=== PATIENT | male | born 1980 | race Hispanic/Latino ===

== ENCOUNTER 2020-06-09 02:35 | Emergency (ER) | payer BC ==
[~2020-06-09] VITALS: Ht 165.1 cm; Wt 88.5 kg
[2020-06-09 02:42] VITALS: BP 144/103
--- NOTE | 2020-06-09 02:47 | PCM.EKG ---
[facility] Test Date: 2020-06-09 Test Time: 02:41:20 Pat Name: ALVARO GIRALDO Department: Patient ID: [facility]-[id number] Room: Gender: M Inside Channel Account Manager: COLETTE : 1980 Requested By: AZRA MIDDLETON Order Number: [id number] Reading MD: Azra Middleton Measurements Intervals [place] Rate: 82 P: 38 AR: 161 QRS: 79 QRSD: 98 T: 37 QT: 378 QTc: 442 Interpretive Statements Sinus rhythm No previous ECG available for comparison Electronically Signed On 06-09-2020 3:08:14 OPHTHALMIC PATHOLOGIST by Azra Middleton Please click the below link to view image of tracing.
--- NOTE | 2020-06-09 02:52 | NUR ---
MARCO ANTONIO CALLED KRISHNA FOR XR CHEST
[2020-06-09 02:54] LABS: BASOPHIL % 0.5 % (0.0-0.2); EOSINOPHIL # 0.2 10^3/uL (0.0-0.2); EOSINOPHIL % 3.2 % (0.0-5.0); LYMPHOCYTES # 3.76 10^3/uL1 (1.0-4.8); LYMPHOCYTES % 50.5 % (24.0-44.0); MONOCYTES # 0.4 10^3/uL (0.3-0.8); MONOCYTES % 5.5 % (5.0-12.0); NEUTROPHIL # 2.8 10^3/uL (1.8-7.7); NEUTROPHILS % 38.2 % (41.0-85.0); PLATELET COUNT 206 10^3/uL (150-400); RED CELL DISTRIBUTION WIDTH 12.5 % (11.5-14.5)
[2020-06-09] MEDS ORDERED: ASPIRIN PO PRN (03:00)
--- NOTE | 2020-06-09 03:05 | ER.PDOC ---
General Chief Complaint: Chest Pain-Cardiac Nature Stated Complaint: CHEST AND ARM PAIN Time seen by MD: 02:48 Source: patient Exam Limitations: no limitations History of Present Illness Initial Comments Patient reports that he woke up this morning feeling sweaty and he had a sensation in his chest that he describes as a strong pulsation with his heart beat. He denies that it is a pain or pressure. He just describes it as a strong pulsation. He also had a funny feeling down his left arm. He denies heart racing or palpitations. No shortness of breath, nausea or lightheadedness. The sweating and arm sensation have resolved and the "pulsations" are not as strong. He can not rate the pulsations. He reports that he has had these sensations in the past usually when he has not had much sleep or if he is stressed. His mother yesteday. He has no medical history. No alcohol last night. No other complaints Allergies: Coded Allergies: No Known Allergies (Unverified , 06/09/20) Past Medical History Medical History: no pertinent history Social History Alcohol Use: none Drug Use: none Reviewed Nursing Reviewed: Vital Signs, Abn. Noted, Nursing Assessment Constitutional: see HPI, diaphoresis EENTM: no symptoms reported Respiratory: no symptoms reported Cardiovascular: see HPI Gastrointestinal: no symptoms reported Musculoskeletal: no symptoms reported Skin: no symptoms reported Psychiatric/Neurological: no symptoms reported All Other Systems: Reviewed and Negative Physical Exam General Appearance: No Apparent Distress, WD/WN HEENT: PERRL/EOMI, Normal ENT Inspection Neck: Non-Tender, Supple Respiratory: chest non-tender, lungs clear, normal breath sounds, no respiratory distress Cardiovascular: Normal Peripheral Pulses, Regular Rate, Rhythm, No Edema Gastrointestinal: Normal Bowel Sounds, Non Tender, Soft Extremities: Normal Range of Motion, Normal Inspection Neurologic/Psychiatric: No Motor/Sensory Deficits, Alert Skin: Normal Color, Warm/Dry Results/Orders Results/Orders Orders - AZRA MIDDLETON MD Cbc With Auto Diff (06/09/20 02:44) Comprehensive Metabolic Panel (06/09/20 02:44) Creatine Kinase (06/09/20 02:44) Creatine Kinase Mb (06/09/20 02:44) Troponin I (06/09/20 02:44) Probnp B-Type Building Insulation Installer (06/09/20 02:44) PT (06/09/20 02:44) Partial Thromboplastin Time. (06/09/20 02:44) Xr Chest 1v (06/09/20 02:44) Ekg-Routine (06/09/20 02:44) Aspirin (Aspirin) (06/09/20 03:00) Saline Lock (06/09/20 02:44) Vital Signs Date Time Temp Pulse Resp B/P (MAP) Pulse Ox O2 Delivery O2 Flow Rate FiO2 06/09/20 02:42 98.7 101 16 98 06/09/20 02:42 98.7 101 16 06/09/20 02:42 98.7 101 16 144/103 (117) 98 Room Air Progress Progress Patient feels improved on repeat evaluation. His heart score is 1 with troponin <0.02 at 0 and 2 hrs and EKGs without ischemic changes. I suspect that his sy mptoms are stress/ anxiety related given the of his mother yesterday. However, he was instructed to follow up with cardiology for stress testing vs further evaluation to definitively rule out a cardiac source of his presenting complaints. If he has new or worsening sx prior to follow up he should return to the ED for evaluation, All questions were addressed and he was understanding of the plan of care EKG/XRAY/CT/US EKG: NSR ER DEPART Departure Time of Disposition: 05:11 Disposition: 01 HOME, SELF-CARE Impression: Primary Impression: Atypical chest pain Condition: Improved Referrals: PCP,UNKNOWN (PCP) PRIMARY CARE PROVIDER FADI GERARDO DO Duration or Time Spent with Pa: 25 AZRA MIDDLETON MD Jun 09, 2020 03:05
--- NOTE | 2020-06-09 03:18 | NUR ---
XRAY IN ROOM FOR PORTABLE CHEST
[2020-06-09 03:24] LABS: ALANINE AMINOTRANSFERASE(ML) 73 U/L (12-78); ALKALINE PHOSPHATASE 131 U/L (50-136); ASPARTATE AMINO TRANSFERASE 25 U/L (0-35); CALCIUM 9.2 mg/dL (8.4-10.5); CARBON DIOXIDE 25.9 mmol/L (20.0-32); GLUCOSE 108 mg/dL (70-110)
[2020-06-09] MEDS ORDERED: ASPIRIN ONE (03:34)
[2020-06-09 03:45] VITALS: BP 126/86
--- NOTE | 2020-06-09 04:41 | PCM.EKG ---
[facility] Test Date: 2020-06-09 Test Time: 04:34:34 Pat Name: ALVARO GIRALDO Department: Patient ID: [facility]-[id number] Room: Gender: M Plumber Cub: COLETTE : 1980 Requested By: AZRA MIDDLETON Order Number: [id number] Reading MD: Azra Middleton Measurements Intervals [place] Rate: 76 P: 33 [place]: 164 QRS: 80 QRSD: 97 T: 47 QT: 381 QTc: 429 Interpretive Statements Sinus rhythm Minimal ST elevation, anterior leads Compared to ECG 06/09/2020 02:41:20 ST (T wave) deviation now present Electronically Signed On 06-10-2020 3:22:46 MACHINE ICER by Azra Middleton Please click the below link to view image of tracing.
[2020-06-09 04:45] VITALS: BP 123/69
[2020-06-09 05:20] VITALS: BP 125/69
--- NOTE | 2020-06-09 05:28 | NUR ---
IV DC'D TIP INTACT, NO BLEEDING
--- NOTE | 2020-06-10 16:15 | DIREP ---
PROCEDURE: CHEST 1 VIEW COMPARISON: None. INDICATIONS: chest pain FINDINGS: LUNGS/PLEURA: No significant pulmonary parenchymal abnormalities. No effusions. VASCULATURE: Normal. Unremarkable pulmonary vasculature. CARDIAC: Normal. No cardiac silhouette abnormality or cardiomegaly. MEDIASTINUM: Normal. No visible mass or adenopathy. BONES: Normal. No fracture or visible bony lesion. OTHER: Negative. CONCLUSION: No acute pulmonary process. Dictated by: Beto Andres M.D. on 06/09/2020 at 03:28 AM [facility]
== END 2020-06-09 05:20 | disposition home or self-care (01) ==
LOC: ER 02:35
DX: R07.89 Other chest pain (principal)
CPT/HCPCS: 36415; 71045; 80053; 82550; 82553; 83880; 84484; 85025; 85610; 85730; 93005; 99285